=== PATIENT | female | born 1990 | race Two or more races ===

== ENCOUNTER 2023-11-09 10:20 | Outpatient (CLI) | payer OTHER | END 2023-11-09 10:21 | disposition home or self-care (01) | LOC: PRENATAL 10:20 | PROVIDERS: ATTEND Obstetrics & Gynecology Maternal & Fetal Medicine | DX: O36.80X0 Pregnancy with inconclusive fetal viability, not applicable or unspecified (principal); Z36.82 Encounter for antenatal screening for nuchal translucency; Z36.9 Encounter for antenatal screening, unspecified; Z14.8 Genetic carrier of other disease; Z3A.14 14 weeks gestation of pregnancy ==